=== PATIENT | female | born 1945 | race Caucasian/White ===

== ENCOUNTER 2020-01-09 15:35 | Outpatient (CLI) | payer MEDICARE, BC | END 2020-01-09 15:36 | disposition home or self-care (01) | LOC: COV 15:35 | PROVIDERS: ATTEND Ophthalmology Retina Specialist | DX: Z01.812 Encounter for preprocedural laboratory examination (principal); H43.822 Vitreomacular adhesion, left eye; Z20.828 Contact with and (suspected) exposure to other viral communicable diseases ==

== ENCOUNTER 2020-07-14 20:03 | Emergency (ER) | payer MEDICARE, BC ==
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
[2020-07-14] MEDS ORDERED: BACITRACIN ZINC OINT 1 PACKET TOP STA (23:42)
[2020-07-14] MEDS ORDERED: TETANUS/DIPHTHERIA/PERTUSSIS 0.5 ML SYRINGE IM ONE (23:42)
[2020-07-14 23:55] VITALS: BP 123/75
== END 2020-07-14 23:55 | disposition home or self-care (01) ==
LOC: ED 20:03
DX: S51.832A Puncture wound without foreign body of left forearm, initial encounter (principal); W27.0XXA Contact with workbench tool, initial encounter; Y93.H2 Activity, gardening and landscaping; Y92.007 Garden or yard of unspecified non-institutional (private) residence as the place of occurrence of the external cause
CPT/HCPCS: 90715; 99281; 99282; A9270

== ENCOUNTER 2020-10-05 15:00 | Outpatient (CLI) | payer MEDICARE, BC | END 2020-10-05 15:01 | disposition home or self-care (01) | LOC: COV 15:00 | PROVIDERS: ATTEND Ophthalmology Retina Specialist | DX: Z01.812 Encounter for preprocedural laboratory examination (principal); H35.371 Puckering of macula, right eye; Z20.822 Contact with and (suspected) exposure to COVID-19 ==

== ENCOUNTER 2023-10-23 13:59 | Outpatient (CLI) | payer MEDICARE, BC ==
--- NOTE | 2023-10-25 08:01 | Mammography Report ---
BILATERAL DIGITAL SCREENING MAMMOGRAM 3D/2D: 10/23/2023 CLINICAL: Routine screening. Comparison is made to exams dated: 10/31/2021 mammogram, 09/28/2021 mammogram - [facility], and 05/29/2014 mammogram - [facility]. Both breasts are heterogeneously dense, which may obscure small masses (category c / 51-75% glandular tissue). There are benign vascular calcifications in both breasts. No significant masses, calcifications, or other findings are seen in either breast. There has been no significant interval change. IMPRESSION: BENIGN There is no mammographic evidence of malignancy. A 1 year screening mammogram is recommended. Based on the Tyrer Cuzick model (a risk assessment model) the patient's lifetime risk is 2.1% and her 10 year risk is 0.0%. According to the ACR, ACS, and NCCN guidelines, an annual breast MRI exam evelyn g with mammogram is recommended if the patient's lifetime risk is 20% or greater. This exam was interpreted at Station ID: [id number]. NOTE: For mammograms, a report in lay terms will be sent to the patient. Approximately 15% of breast malignancies will not be visualized mammographically. In the management of a palpable breast mass, a negative mammogram must not discourage biopsy of a clinically suspicious lesion. Electronically Signed By: Thea little/medina:10/24/2023 17:21:01 letter sent: No_Letter ACR BI-RADS Category 2: Benign Finding(s) 3342F PARENCHYMAL PATTERN: (D) - The breast(s) demonstrate(s) heterogeneously dense fibroglandular rubin mcclelland. BI-RADS CATEGORY: (2) - 2 RECOMMENDATION: (ANNUAL) - Recommend routine annual screening mammography. [id number] 1 year screening LATERALITY: (B)
== END 2023-10-23 14:00 | disposition home or self-care (01) ==
LOC: DI 13:59
PROVIDERS: ATTEND Family Medicine
DX: Z12.31 Encounter for screening mammogram for malignant neoplasm of breast (principal); R92.333 Mammographic heterogeneous density, bilateral breasts

== ENCOUNTER 2023-10-23 14:01 | Outpatient (CLI) | payer MEDICARE, BC ==
--- NOTE | 2023-10-24 13:10 | DEXA Report ---
PROCEDURE: Dexa Spine and/or Hip INDICATIONS: OSTEOPENIA TECHNIQUE: Dual energy x-ray absorptiometry (DXA) was performed on a [employer] System. Regions measur ed are the AP Spine, femoral neck, and if needed forearm. COMPARISON: 09/21/2021 FINDINGS: Lumbar Spine: Bone Mineral Density: 1.216 g/cm/cm,T score: 0.3. Since the most recent prior study, there has been a statistically significant increase in bone mineral density by 6.2 percent. Left Femoral Neck: Bone Mineral Density: 0.673 g/cm/cm, T score: -2.6. Left Hip: Bone Mineral Density: 0.754 g/cm/cm,T score: -2.0. Since the most recent prior study, there has been a statistically significant decrease in bone mineral density by 1.8 percent. FRAX risk factors: None given. (T score greater or equal to -1.0: NORMAL) (T score from -1.1 to -2.4: OSTEOPENIA) (T score less than or equal to -2.5 to: OSTEOPOROSIS) Impression: By WHO criteria, this patient has osteoporosis. Interval statistical increase in bone mineral density of the lumbar spine. Interval statistical decre ase in bone mineral density of the hip. Patients with diagnosis of osteoporosis or osteopenia should have regular bone mineral density assess ment. For those eligible for Medicare, routine testing is allowed once every 2 years. Testing frequ ency can be increased for patients who have rapidly progressing disease or for those who are receivin g medical therapy to restore bone mass. Reviewed by: Navjot Salazar MD on 10/24/2023 1:08 PM PDT Approved by: Navjot Salazar MD on 10/24/2023 1:08 PM PDT Station ID: [id number]
== END 2023-10-23 14:02 | disposition home or self-care (01) ==
LOC: DI 14:01
PROVIDERS: ATTEND Family Medicine
DX: M81.0 Age-related osteoporosis without current pathological fracture (principal)